=== PATIENT | female | born 1975 | race Hispanic/Latino ===

== ENCOUNTER 2017-04-04 14:17 | Emergency (ER) | payer OTHER ==
[2017-04-04 14:24] VITALS: TEMP 98.9; O2SAT 100
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
[2017-04-04] MEDS ORDERED: Lidocaine 5% Patch TD STA (16:33)
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
[2017-04-04 19:20] VITALS: BP 110/74; PULSE 72; RESP 20
== END 2017-04-04 19:20 | disposition home or self-care (01) ==
LOC: C.ER 14:17
DX: S30.0XXA Contusion of lower back and pelvis, initial encounter (principal); Y04.0XXA Assault by unarmed brawl or fight, initial encounter; M54.5 Low back pain